=== PATIENT | female | born 1955 | race Caucasian/White ===

== ENCOUNTER 2020-01-21 09:29 | Day surgery (SDC) | payer OTHER ==
[~2020-01-21 09:29] MED LIST: Lactated Ringers 1,000 ML IV SCH; Sodium Chloride 0.9% 10 ML Syringe FLUSH PRN
[2020-01-21] MEDS ORDERED: Propofol 200 MG/20 ML SDV ONE (10:49)
--- NOTE | 2020-01-22 09:57 | OR ---
PREOPERATIVE DIAGNOSES: 1. Chronic productive cough. 2. Incidentally seen thickened esophagus on recent CT scan. POSTOPERATIVE DIAGNOSES: 1. Chronic productive cough. 2. Mild antritis. 3. Normal appearance of the esophagus without evidence of masses, strictures, or inflammation. PROCEDURE PERFORMED: Esophagogastroduodenoscopy with biopsies. ANESTHESIA: MAC anesthesia. COMPLICATIONS: None. BLOOD LOSS: Minimal. FINDINGS: 1. Unremarkable duodenum. 2. Mild antritis, biopsies obtained. 3. Retroflexed view revealed Hill grade 2 hiatus. 4. Z-line at 35 cm. 5. No hiatal hernia. 6. No esophagitis, strictures, or masses noted in the esophagus. The esophagus was grossly normal in appearance. INDICATIONS FOR PROCEDURE: Ms. Poole is a 64-year-old female who back in 02/2019 had 3 significant episodes of pneumonia. Ever since then, she has had a chronic productive cough with phlegm. She did get a CT recently ordered by her PCP, which noted bronchiectasis, for which she is going to see Pulmonology. It also showed incidental thickening of the distal esophagus. She denies GERD symptoms and dysphagia. She is here for endoscopic evaluation of this esophageal thickening. DETAILS OF PROCEDURE: After informed consent was obtained, the patient was brought to the operating room and placed in left lateral decubitus position. MAC anesthesia was induced by Anesthesia colleagues. A bite block was placed. The endoscope was introduced into the mouth and passed through the upper esophageal sphincter down the esophagus into the stomach. The pylorus was intubated. The duodenum was examined up into the second portion. There were no abnormalities of the duodenum. There was mild antritis. Biopsies were obtained and sent for H pylori. Retroflexed view was obtained which showed Hill grade 2 hiatus. There were no other abnormalities of the stomach. The stomach was desufflated and the endoscope was withdrawn into the esophagus. The Z-line was located at 35 cm. There was no hiatal hernia, esophagitis, strictures, or masses. The endoscope was then withdrawn. The patient tolerated the procedure well and was awoken from MAC anesthesia by Anesthesia colleagues without incident. PATHOLOGY: RECOMMENDATIONS: 1. I agree with pulmonary consultation. I do think her cough is more likely pulmonary related rather than GERD related. 2. The esophagus was grossly normal in appearance without any abnormalities seen. I feel that this finding on her CT scan was incidental. I do not feel there is any need for ongoing surveillance in the absence of clinical change. RKM: 01/21/2020 12:00:58 MODL: 01/21/2020 17:05:14 /[id number]
== END 2020-01-21 13:25 | disposition home or self-care (01) ==
LOC: VM.SDS 09:29
PROVIDERS: ATTEND Student in an Organized Health Care Education/Training Program
DX: K29.50 Unspecified chronic gastritis without bleeding (principal); I78.1 Nevus, non-neoplastic; R05 Cough; G51.0 Bell's palsy; Z98.890 Other specified postprocedural states; M85.80 Other specified disorders of bone density and structure, unspecified site; Z79.899 Other long term (current) drug therapy; N95.2 Postmenopausal atrophic vaginitis; Z88.5 Allergy status to narcotic agent; Z88.8 Allergy status to other drugs, medicaments and biological substances; Z01.812 Encounter for preprocedural laboratory examination; Z20.828 Contact with and (suspected) exposure to other viral communicable diseases
CPT/HCPCS: 00731; 43239; 87635; J2704; J7120; U0002